=== PATIENT | male | born 1975 | race Hispanic/Latino ===

== ENCOUNTER 2017-03-05 23:01 | Emergency (ER) | payer MEDICARE, OTHER ==
[2017-03-05 23:21] VITALS: BP 154/93; PULSE 81; RESP 18; TEMP 98.3; O2SAT 98
--- NOTE | 2017-03-05 23:46 | C.PDOC ---
History Of Present Illness 41 year old patient presents to the ED complaining of gum pain that started tonight. Patient states he's had multiple extractions and prior pain to this area. The pain normally resolved, but today it has been persistent for a few hours. Patient denies fever, difficulty breathing, or difficulty swallowing. Time Seen by Provider: 03/05/17 23:22 Chief Complaint (Nursing): Dental Pain History Per: Patient History/Exam Limitations: no limitations Onset/Duration Of Symptoms: Hrs (few hours tonight) Current Symptoms Are (Timing): Still Present Severity: Mild Pain Scale Rating Of: 3 Quality: Positive for: "Pain" Recent travel outside of the [place]: No Past Medical History Reviewed: Historical Data, Nursing Documentation, Vital Signs Vital Signs: Last Vital Signs Temp 98.3 F 03/05/17 23:19 Pulse 81 03/05/17 23:19 Resp 18 03/05/17 23:19 BP 154/93 H 03/05/17 23:19 Pulse Ox 98 03/07/17 04:53 - Medical History PMH: Diabetes (NIDDM), HTN Family History: States: Unknown Family Hx - Social History Hx Tobacco Use: No Hx Alcohol Use: No Hx Substance Use: No - Immunization History Hx Tetanus Toxoid Vaccination: No Hx Influenza Vaccination: No Hx Pneumococcal Vaccination: No Review Of Systems Except As Marked, All Systems Reviewed And Found Negative. Constitutional: Negative for: Fever ENT: Positive for: Mouth Pain. Negative for: Throat Swelling Respiratory: Negative for: Shortness of Breath Physical Exam - Physical Exam Appears: Non-toxic, No Acute Distress Skin: Warm, Dry Head: Atraumatic, Normacephalic Eye(s): bilateral: PERRL, EOMI Ear(s): Bilateral: Normal Nose: Normal Oral Mucosa: Moist Teeth: Other (poor dentition; no molar to to the right mandible) Gingiva: No Erythema, No Swelling, Tender (right mandibular gingiva), No Bleeding, No Other ((-) fluctuance) Throat: Normal, No Erythema, No Exudate, No Drooling Neck: Normal ROM, Supple Chest: Symmetrical Cardiovascular: Rhythm Regular Respiratory: Normal Breath Sounds, No Rales, No Rhonchi, No Wheezing Extremity: Normal ROM Neurological/Psych: Oriented x3, Normal Speech Gait: Steady ED Course And Treatment O2 Sat by Pulse Oximetry: 98 (room air) Pulse Ox Interpretation: Normal Progress Note: Plan: -Clindamycin. Pt was instructed to follow up with the dentis tin 1-2 days for return to ER if symptoms persist or worsen. Disposition - Disposition Referrals: [facility] [Outside] Disposition: HOME/ ROUTINE Disposition Time: 23:43 Condition: STABLE Additional Instructions: Follow up with your dentist or clinic in 2-5 days for further evaluation. Take medications as prescribed. Return to the emergency department at any time if symptoms persist or worsen. 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 - Scribe Statement The provider has reviewed the documentation as recorded by the Scribe Yudy Wells All medical record entries made by the Scribe were at my direction and personally dictated by me. I have reviewed the chart and agree that the record accurately reflects my personal performance of the history, physical exam, medical decision making, and the department course for this patient. I have also personally directed, reviewed, and agree with the discharge instructions and disposition.
== END 2017-03-05 23:59 | disposition home or self-care (01) ==
LOC: C.ER 23:01
DX: K08.89 Other specified disorders of teeth and supporting structures (principal)

== ENCOUNTER 2018-01-12 10:42 | Emergency (ER) | payer MEDICARE, OTHER ==
[2018-01-12 10:53] VITALS: BP 170/81; PULSE 57; RESP 18; TEMP 97.8; O2SAT 97
[2018-01-12] MEDS ORDERED: Naproxen 550 mg Tab PO STA (11:18)
--- NOTE | 2018-01-12 11:22 | C.PDOC ---
History Of Present Illness 42 y/o male with dm and htn c/o right lower tooth pain for a week, denies fever , denies facial swelling. pt took naproxen with some relief. Time Seen by Provider: 01/12/18 11:01 Chief Complaint (Nursing): Dental Pain History Per: Patient History/Exam Limitations: no limitations Onset/Duration Of Symptoms: Days (7) Current Symptoms Are (Timing): Still Present Severity: Moderate Quality: Positive for: "Pain" Past Medical History Reviewed: Historical Data, Nursing Documentation, Vital Signs Vital Signs: Last Vital Signs Temp 97.8 F 01/12/18 10:50 Pulse 57 L 01/12/18 10:50 Resp 18 01/12/18 10:50 BP 170/81 H 01/12/18 10:50 Pulse Ox 97 01/12/18 11:28 - Medical History PMH: Diabetes (NIDDM), HTN Family History: States: Unknown Family Hx - Social History Hx Tobacco Use: No Hx Alcohol Use: No Hx Substance Use: No - Immunization History Hx Tetanus Toxoid Vaccination: No Hx Influenza Vaccination: No Hx Pneumococcal Vaccination: No Review Of Systems Constitutional: Negative for: Fever, Chills ENT: Positive for: Mouth Pain. Negative for: Ear Pain, Mouth Swelling, Throat Pain Skin: Negative for: Rash Physical Exam - Physical Exam Appears: Non-toxic, No Acute Distress Skin: Warm, Dry Head: Atraumatic, Normacephalic Eye(s): bilateral: Normal Inspection Nose: No Discharge Oral Mucosa: Moist Tongue: Normal Appearing Lips: Normal Appearing Teeth: Other (poor dentition with multiple missing teeth, most remaining teeth, annabelle in right lower jaw, are broken and carious appearing, tender to palpation right lower teeth. no gum swelling noted. ) Gingiva: Erythema, No Swelling, Tender Throat: No Erythema, No Exudate Neck: Supple Lymphatic: Adenopathy (bilateral tender mildly enlarged submandibular nodes) ED Course And Treatment O2 Sat by Pulse Oximetry: 97 Medical Decision Making Medical Decision Making: pt with multiple tender carious teeth in right lower mouth, will tx with naproxen and clindamycin and dental f/u; pt to be given list of dental resources. Disposition Counseled Patient/Family Regarding: Diagnosis, Need For Followup, Rx Given - Disposition Referrals: [facility] [Outside] Disposition: HOME/ ROUTINE Disposition Time: 11:27 Condition: GOOD Additional Instructions: Please take medications as prescribed. Follow up with dental provider as soon as possible. Prescriptions: Clindamycin [Cleocin] 300 mg PO Q6 #28 cap Naproxen 500 mg PO BID #20 tab Instructions: Tooth Decay, Adult (DC) Forms: [facility] (Serbian), General Discharge Instructions - Clinical Impression Clinical Impression: Dental caries
[2018-01-12] MEDS ORDERED: Naproxen 550 mg Tab PO ONE (11:24)
== END 2018-01-12 11:44 | disposition home or self-care (01) ==
LOC: C.ER 10:42
DX: K02.9 Dental caries, unspecified (principal)

== ENCOUNTER 2018-01-15 09:34 | Emergency (ER) | payer MEDICARE, OTHER ==
[2018-01-15 10:00] LABS: BASO % 0.5 % (0.0-2.0); EOS # 0.3 K/uL (0.0-0.7); EOS % 3.7 % (0.0-4.0); HEMOGLOBIN 15.3 g/dL (12.0-18.0); LYMPH # 2.5 K/uL (1.0-4.3); LYMPH % 28.3 % (20.0-40.0); MEAN CELL VOLUME 85.1 fL (80.0-94.0); MEAN CORPUSCULAR HEMOGLOBIN 28.7 pg (27.0-31.0); MEAN CORPUSCULAR HGB CONC 33.7 g/dL (33.0-37.0); MEAN PLATELET VOLUME 7.9 fL (7.2-11.7); MONO # 1.1 K/uL (0.0-0.8); MONO % 12.3 % (0.0-10.0); NEUT # 4.8 K/uL (1.8-7.0); NEUT % 55.2 % (50.0-75.0); RBC 5.33 Mil/uL (4.40-5.90); RED CELL DISTRIBUTION WIDTH 13.6 % (11.5-14.5); WHITE BLOOD COUNT 8.7 K/uL (4.8-10.8)
[2018-01-15 10:07] LABS: SQUAMOUS EPITHIAL < 1 /hpf (0-5); URINE BACTERIA RARE (<OCC); URINE BILIRUBIN NEGATIVE (NEGATIVE); URINE BLOOD 1+ (NEGATIVE); URINE CLARITY Hazy (Clear); URINE COLOR Yellow (YELLOW); URINE GLUCOSE (UA) 3+ mg/dL (Normal); URINE HYALINE CAST 0-2 /lpf (0-2); URINE LEUKOCYTE ESTERASE NEG Leu/uL (Negative); URINE PROTEIN NEGATIVE (NEGATIVE); URINE UROBILINOGEN NORMAL mg/dL (0.2-1.0)
[2018-01-15 10:23] LABS: BARBITURATES, UR NEGATIVE (NEGATIVE); BENZODIAZEPINES, UR NEGATIVE (NEGATIVE); OPIATES, UR NEGATIVE (NEGATIVE); PHENCYCLIDINE, UR NEGATIVE (NEGATIVE)
--- NOTE | 2018-01-15 11:09 | C.PDOC ---
History Of Present Illness 42 y/o male with history of psych problems, HTN and DM presents to ED in an agitated state screaming and shouting saying " I have nobody to talk to". While at Main lobby patient was brought to ED by security guards, was seen at ED 3 days ago for dental pain. At ED patient currently denies suicidal ideation, homicidal ideation, auditory or visual hallucinations. No other complaints at this time. Time Seen by Provider: 01/15/18 09:44 Chief Complaint (Nursing): Psychiatric Evaluation History Per: Patient History/Exam Limitations: no limitations Onset/Duration Of Symptoms: Days Current Symptoms Are (Timing): Still Present Suicide/Self Injury Attempted (Context): None Associated Symptoms: Agitation Past Medical History Reviewed: Historical Data, Nursing Documentation, Vital Signs Vital Signs: Last Vital Signs Temp 98.2 F 01/15/18 14:59 Pulse 88 01/15/18 14:59 Resp 20 01/15/18 14:59 BP 132/74 01/15/18 14:59 Pulse Ox 99 01/18/18 21:16 - Medical History PMH: Bipolar Disorder, Diabetes (NIDDM), HTN, Schizophrenia Surgical History: No Surg Hx Family History: States: No Known Family Hx - Social History Hx Tobacco Use: No Hx Alcohol Use: No Hx Substance Use: No - Immunization History Hx Tetanus Toxoid Vaccination: No Hx Influenza Vaccination: No Hx Pneumococcal Vaccination: No Review Of Systems Constitutional: Negative for: Fever, Chills Cardiovascular: Negative for: Chest Pain Respiratory: Negative for: Shortness of Breath Gastrointestinal: Negative for: Nausea, Vomiting Skin: Negative for: Rash Psych: Positive for: Other (Agitated). Negative for: Suicidal ideation Physical Exam - Physical Exam Appears: Non-toxic, Unkempt, Agitated Skin: Warm, Dry, No Rash Head: Normacephalic, Swelling (Mild right facial) Eye(s): bilateral: PERRL, EOMI Oral Mucosa: Moist Teeth: Caries (multiple mostly on right lower area) Neck: Normal ROM, Supple Cardiovascular: Rhythm Regular, Other (Tachycardic) Respiratory: Normal Breath Sounds, No Rales, No Rhonchi, No Wheezing Gastrointestinal/Abdominal: Soft, No Tenderness, No Guarding, No Rebound Extremity: Normal ROM, Capillary Refill (<2 seconds) Neurological/Psych: Oriented x3, Normal Speech Gait: Steady ED Course And Treatment - Laboratory Results Result Diagrams: 01/15/18 09:53 01/15/18 09:53 O2 Sat by Pulse Oximetry: 99 (RA) Medical Decision Making Medical Decision Making: pt reports feeling much better at this time, is calm and cooperative. pt cleared by crisis team for discharge. pt received iv fluids, ate lunch. outpatient followup appt made for pt for next fri or . pt advised to continue taking all medications including antibiotics prescribed on Friday for dental infection Disposition Counseled Patient/Family Regarding: Studies Performed, Diagnosis, Need For Followup - Disposition Disposition: HOME/ ROUTINE Disposition Time: 14:05 Condition: IMPROVED Additional Instructions: Please follow up with your appointment next week for psychiatric evaluation. Follow up with medical clinic and dentist too. Instructions: Schizophrenia (DC) Forms: [facility] (Belarusian), General Discharge Instructions - Clinical Impression Clinical Impression: Schizophrenia - PA / INCREMENT MANAGER / Resident Statement MD/DO has reviewed & agrees with the documentation as recorded. - Scribe Statement The provider has reviewed the documentation as recorded by the Ernestoibcarmelo Soto All medical record entries made by the Francisco were at my direction and personally dictated by me. I have reviewed the chart and agree that the record accurately reflects my personal performance of the history, physical exam, medical decision making, and the department course for this patient. I have also personally directed, reviewed, and agree with the discharge instructions and disposition.
[2018-01-15 11:26] LABS: ALB/GLOB RATIO 1.1 (1.0-2.1); ALBUMIN 4.6 g/dL (3.5-5.0); ALT/SGPT 24 U/L (21-72); AST/SGOT 41 U/L (17-59); BLOOD UREA NITROGEN 21 mg/dL (9-20); CALCIUM 9.9 mg/dl (8.6-10.4); GFR AFRICAN-AMERICAN > 60; GFR NON-AFRICAN AMERICAN > 60
[2018-01-15] MEDS ORDERED: Sodium Chloride 0.9% 1,000 ML IV ONE (11:53)
[2018-01-15] MEDS ORDERED: Sodium Chloride 0.9% 1,000 ML ONE (12:01)
[2018-01-15 15:01] VITALS: BP 132/74; PULSE 88; RESP 20; TEMP 98.2
[2018-01-18 21:16] VITALS: O2SAT 99
== END 2018-01-15 14:59 | disposition home or self-care (01) ==
LOC: C.ER 09:34
DX: F20.9 Schizophrenia, unspecified (principal)
CPT/HCPCS: 80053; 81001; 85025; 96360; 99284; G0480; J7040

== ENCOUNTER 2018-07-06 22:16 | Emergency (ER) | payer MEDICARE, OTHER ==
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
[2018-07-07 00:10] LABS: BASO % 0.5 % (0.0-2.0); EOS # 0.4 K/uL (0.0-0.7); HEMOGLOBIN 14.8 g/dL (12.0-18.0); LYMPH # 1.6 K/uL (1.0-4.3); LYMPH % 21.1 % (20.0-40.0); MEAN CELL VOLUME 84.8 fL (80.0-94.0); MEAN CORPUSCULAR HEMOGLOBIN 29.4 pg (27.0-31.0); MEAN CORPUSCULAR HGB CONC 34.6 g/dL (33.0-37.0); MEAN PLATELET VOLUME 8.3 fL (7.2-11.7); MONO # 0.6 K/uL (0.0-0.8); MONO % 8.5 % (0.0-10.0); NEUT # 4.8 K/uL (1.8-7.0); NEUT % 64.9 % (50.0-75.0); RBC 5.04 Mil/uL (4.40-5.90); RED CELL DISTRIBUTION WIDTH 13.3 % (11.5-14.5); WHITE BLOOD COUNT 7.4 K/uL (4.8-10.8)
[2018-07-07 00:12] LABS: SQUAMOUS EPITHIAL < 1 /hpf (0-5); URINE BILIRUBIN NEGATIVE (NEGATIVE); URINE BLOOD NEGATIVE (NEGATIVE); URINE CLARITY Clear (Clear); URINE COLOR Yellow (YELLOW); URINE GLUCOSE (UA) 3+ mg/dL (Normal); URINE LEUKOCYTE ESTERASE NEG Leu/uL (Negative); URINE PROTEIN NEGATIVE (NEGATIVE); URINE UROBILINOGEN NORMAL mg/dL (0.2-1.0)
[2018-07-07 00:25] LABS: ACETAMINOPHEN < 10.0 ug/mL (10.0-30.0); ALB/GLOB RATIO 1.3 (1.0-2.1); ALBUMIN 4.3 g/dL (3.5-5.0); ALT/SGPT 53 U/L (21-72); AST/SGOT 39 U/L (17-59); BLOOD UREA NITROGEN 11 mg/dL (9-20); CALCIUM 9.5 mg/dl (8.6-10.4); GFR NON-AFRICAN AMERICAN > 60; SALICYLATE < 1.0 mg/dL 1
[2018-07-07 00:28] LABS: BARBITURATES, UR NEGATIVE (NEGATIVE); BENZODIAZEPINES, UR NEGATIVE (NEGATIVE); PHENCYCLIDINE, UR NEGATIVE (NEGATIVE)
[2018-07-07 00:29] VITALS: BP 121/75
[2018-07-07 00:43] LABS: OPIATES, UR NEGATIVE (NEGATIVE)
[2018-07-07 01:26] VITALS: PULSE 87; RESP 16; TEMP 98.3
[2018-07-07 01:28] VITALS: O2SAT 95
== END 2018-07-07 01:32 | disposition home or self-care (01) ==
LOC: C.ER 22:16
DX: F20.9 Schizophrenia, unspecified (principal); E11.9 Type 2 diabetes mellitus without complications; I10 Essential (primary) hypertension
CPT/HCPCS: 80053; 81001; 82550; 83735; 84100; 85025; 99284; G0480